=== PATIENT | female | born 1970 | race Caucasian/White ===

== ENCOUNTER 2024-05-15 11:13 | Emergency (ER) | payer SELFPAY ==
--- NOTE | ~2024-05-15 | US_ITS ---
EXAMINATION: US abdomen limited DATE: 05/15/2024 16:43 INDICATION: Right upper quadrant abdominal pain. TECHNIQUE: Multiple grayscale and Doppler ultrasound images of the abdomen were obtained. COMPARISON: CT abdomen and pelvis 05/15/2024 FINDINGS: The visualized portions of the head, body, and tail of the pancreas are normal. The liver i s normal without focal lesion. There is normal flow in main portal vein. The gallbladder is normal in size. No gallstones or gallbladder wall thickening. There is no sonographic Howe's sign. The commo n duct is normal and measures 3 mm. IMPRESSION: 1. Normal right upper quadrant ultrasound. Reviewed, dictated and finalized at location A. IGN POLICY OFFICER
--- NOTE | ~2024-05-15 | CT_ITS ---
CLINICAL INDICATION: Right upper quadrant pain COMPARISON: None. TECHNIQUE: Multiple contiguous axial images of the abdomen and pelvis were performed following the ad ministration of with 100 mL Omnipaque-350 intravenous contrast The dose-length product (DLP) was 214.43 mGy-cm. Automated exposure control and iterative reconstruction technique were employed. FINDINGS/OBSERVATIONS: Visualized lower thorax: The bilateral lung bases are clear. The heart is of normal size, without pericardial effusion. Small hiatal hernia is present. Liver: The liver enhances homogeneously and is not enlarged measuring 15 cm in longitudinal dimension. Gallbladder and biliary system: The gallbladder is decompressed, and otherwise unremarkable. Pancreas: The pancreas enhances homogeneously without ductal dilatation. Spleen: The spleen enhances homogeneously and is not enlarged measuring 9 cm in longitudinal dimension. Kidneys: The bilateral kidneys enhance symmetrically without hydronephrosis or renal calculi. Adrenal glands: Unremarkable. Gastrointestinal tract: Trace colonic diverticulosis without surrounding inflammatory change. Appendix: The air-filled appendix is of normal caliber (axial series, images 109 - 130) Vasculature: Unremarkable. Lymph nodes: No pathologically enlarged or morphologically suspicious lymph nodes within the retroperitoneum or at the root of the mesentery. Pelvic structures: The bladder is decompressed, and otherwise unremarkable. The uterus is anteverted and anteflexed. Body wall and musculoskeletal: No significant degenerative disease within the lower thoracic or lumbosacral spine. IMPRESSION: No acute intra-abdominal pathology, as detailed above. Reviewed, dictated and finalized at location A. ING OPERATOR
[2024-05-15 11:27] VITALS: BP 140/49; PULSE 94; RESP 16; TEMP 36.7
--- NOTE | 2024-05-15 13:54 | ED_ITS ---
HPI - Abdominal Pain General Chief Complaint: Abdominal Pain <Shirlene Mak PA-C - Last Filed: 05/15/24 14:01> Stated Complaint: R abd pain <Shirlene Mak PA-C - Last Filed: 05/15/24 14:01> Time Seen by Provider: 05/15/24 13:54 <Shirlene Mak PA-C - Last Filed: 05/15/24 14:01> Focused HPI: Patient is a 54 y/o female who presents to the ED with c/o R upper abdominal pain. Patient reports she developed nausea, vomiting, diarrhea, subjective fevers, and pain in her R side intermittently over the past 3-4 days. Since this morning, pain is more constant and radiates into her R shoulder. Sta khang the pain is worse with eating or drinking. She has not taken anything for the pain. Never had pain like this before. Denies dysuria, hematuria, cough, cold sx's. GENERAL: Well-appearing, well-nourished, and in no acute distress. HEAD: Normocephalic, atraumatic. CHEST: Clear to auscultation. ?No respiratory distress. HEART: Regular rate and rhythm.? ABD: Focal TTP in RUQ. No rebound. Normoactive BS NEURO: ?Alert and oriented x3. Patient screened in triage and initial orders placed.? ?Additional care and disposition to be based upon?diagnostic testing and treatment. <Shirlene Mak PA-C - Last Filed: 05/15/24 14:01> Source: patient <Shirlene Mak PA-C - Last Filed: 05/15/24 14:01> Mode of arrival: ambulatory <TELLY Romeo Last Filed: 05/15/24 14:01> Limitations: no limitations <Shirlene Mak PA-C - Last Filed: 05/15/24 14:01> History of Present Illness HPI narrative: I agree of the above HPI <Heath Santiago MD - Last Filed: 05/15/24 18:46> Related Data Allergies/Adverse Reactions: Allergies Allergy/AdvReac Type Severity Reaction Status Date / Time Penicillins Allergy Unknown Verified 05/15/24 11:16 <Shirlene Mak PA-C - Last Filed: 05/15/24 14:01> Review of Systems Review of Systems: All systems reviewed & are unremarkable except as noted in HPI and below <Haeth Santiago MD - Last Filed: 05/15/24 18:46> Exam Narrative: APPEARANCE: Well appearing, no pain, no distress, well-nourished. HEAD: normocephalic, atraumatic. EYES: PERRLA/EOMI, conjunctivae clear. NOSE: Normal no drainage EARS:TMS clear with good light reflex. THROAT: Pharynx clear, no exudate. NECK: Supple. No adenopathy, no masses. RESPIRATORY: Airway patent, respirations nonlabored. Clear to auscultation bilaterally, no rales, rhonchi, wheezing. CARDIOVASCULAR: Regular rate and rhythm without murmurs rubs or gallops. ABDOMINAL: Right upper quadrant tenderness MUSCULOSKELETAL: Moves all extremities. Strength/ROM intact, No edema, No calf tenderness. NEURO: Alert. Cranial nerves II through XII intact. Good gait. Good coordination SKIN: Warm, dry. Normal Color <Heath Santiago MD - Last Filed: 05/15/24 18:46> Course BUSINESS EDUCATION PROFESSOR/PA Physician Supervision For this patient encounter, I reviewed the BUSINESS EDUCATION PROFESSOR or PA documentation, treatment plan, and medical decision making; and I had [id number] time with this patient. <Heath Santiago MD - Last Filed: 05/15/24 18:46> Vital Signs Vital signs: Vital Signs Temperature 98.1 F 05/15/24 11:27 Pulse Rate 94 05/15/24 11:27 Respiratory Rate 16 05/15/24 11:27 Blood Pressure 140/49 L 05/15/24 11:27 Oxygen Delivery Room Air 05/15/24 11:27 Temperature 97.8 F 05/15/24 17:12 Pulse Rate 63 05/15/24 17:12 Respiratory Rate 15 05/15/24 17:12 Blood Pressure 110/64 05/15/24 17:12 Pulse Oximetry 98 05/15/24 17:12 Oxygen Delivery Room Air 05/15/24 11:27 <Shirlene Mak PA-C - Last Filed: 05/15/24 14:01> Vital Signs Temperature 98.1 F 05/15/24 11:27 Pulse Rate 94 05/15/24 11:27 Respiratory Rate 16 05/15/24 11:27 Blood Pressure 140/49 L 05/15/24 11:27 Oxygen Delivery Room Air 05/15/24 11:27 Temperature 97.8 F 05/15/24 17:12 Pulse Rate 63 05/15/24 17:12 Respiratory Rate 15 05/15/24 17:12 Blood Pressure 110/64 05/15/24 17:12 Pulse Oximetry 98 05/15/24 17:12 Oxygen Delivery Room Air 05/15/24 11:27 <Heath Santiago MD - Last Filed: 05/15/24 18:46> MDM - Abdominal Pain MDM Narrative Medical decision making narrative: MSE by JONI in triage. <Shirlene Mak PA-C - Last Filed: 05/15/24 14:01> MSE by JONI in triage. 54-year-old female presents emergency department for evaluation for right upper quadrant pain. Patient is afebrile with no leukocytosis and hemoglobin of 13.4. Patient has no acute abnormalities on her CMP. Patient does have a mild urinary tract infection. CT scan showed no acute abnormalities. Patient is still complaining of right upper quadrant pain, ultrasound was ordered to evaluate for gallbladder abnormality and gallbladder was normal ultrasound. Patient was started on antibiotics for suspected urinary tract infection. Patient was encouraged of close follow-up with her primary care physician. All questions concerns were addressed patient was well-appearing at time of dis charge. <Heath Santiago MD - Last Filed: 05/15/24 18:46> Differential Diagnosis Differential diagnosis: Likely abdominal pain, acute appendicitis, calculus of kidney, constipation, diverticulitis, gastroenteritis, pancreatitis and small bowel obstruction <Heath Santiago MD - Last Filed: 05/15/24 18:46> Lab Data Attestation: I reviewed the patient's lab results. <Heath Santiago MD - Last Filed: 05/15/24 18:46> Result diagrams: 05/15/24 14:00 05/15/24 14:00 <Shirlene Mak PA-C - Last Filed: 05/15/24 14:01> Labs: Lab Results 05/15/24 05/15/24 Range/Units 14:00 14:59 WBC 6.3 (4.5-10.0) K/mm3 RBC 4.19 L (4.2-5.4) M/mm3 Hgb 13.4 (12.0-15.0) g/dL Hct 38.9 (37.0-47.0) % MCV 92.8 (80-100) fl MCH 32.0 (26-34) pg MCHC 34.4 (32-36) g/dl RDW 12.8 (11.5-14.5) % Plt Count 198 (150-375) k/mm3 MPV 12.0 H (7.4-10.4) fl Immature Gran % (Auto) 0.2 (0-0.5) % Neut % (Auto) 56.4 (45.5-73.1) % Lymph % (Auto) 35.3 (18.3-44.2) % [place] % (Auto) 6.5 (2.6-8.5) % Eos % (Auto) 1.1 (0-4.4) % Baso % (Auto) 0.5 (0.2-1.2) % Lymph # (Auto) 2.23 (0.9-3.2) K/mm3 [place] # (Auto) 0.4 (0.1-0.6) K/mm3 Eos # (Auto) 0.1 (0-0.3) K/mm3 Baso # (Auto) 0.0 (0.0-0.1) K/mm3 Abs Immat Gran (auto) 0.01 (0.00-0.031) K/mm3 Absolute Neuts (auto) 3.6 (1.3-6.7) K/mm3 Absolute Nucleated RBC 0.000 (0.0-0.012) K/mm3 Nucleated RBC % 0.0 (0.0-0.2) % Sodium 139 (137-145) mmol/L Potassium 4.0 (3.4-5.0) mmol/L Chloride 106 (98-107) mmol/L Carbon Dioxide 25 (22-30) mmol/L Anion Gap 8 (4-12) mmol/L BUN 12 (7-17) mg/dL Creatinine 0.70 (0.7-1.0) mg/dL Estim Creat Clear Calc 66 ml/min Estimated GFR > 60 (59 - ) Glucose 98 (65-110) mg/dL Calcium 9.7 (8.4-10.2) mg/dL Total Bilirubin 0.3 (0.2-1.3) mg/dL AST 22 (14-36) U/L ALT 11 (6-35) U/L Alkaline Phosphatase 58 (38-126) U/L Total Protein 8.0 (6.3-8.2) g/dL Albumin 4.7 (3.5-5.1) g/dL Lipase 69 (23-300) U/L Urine Color Yellow (Yellow) Urine Appearance Cloudy H (Clear) Urine pH 6.5 (5.0-9.0) Ur Specific [place] 1.018 (1.001-1.035) Urine Protein Negative (Negative) mg/dL Urine Glucose (UA) Negative (Negative) mg/dL Urine Ketones Trace H (Negative) mg/dL Ur Blood (Man) Negative (Negative) Urine Nitrate Negative (Negative) Urine Bilirubin Negative (Negative) Urine Urobilinogen 1.0 (<2.0) mg/dL Leukocyte Esterase Rfl 1+ H (Negative) MIRLANDE/UL Urine RBC 0-2 (0-2) /hpf Urine WBC 11-20 H (0-3) /hpf Ur Squamous Epith Cells Moderate (Few) /hpf Urine Bacteria Rare /hpf Urine Casts 0-2 <Shirlene Mak PA-C - Last Filed: 05/15/24 14:01> Lab Results 05/15/24 05/15/24 Range/Units 14:00 14:59 WBC 6.3 (4.5-10.0) K/mm3 RBC 4.19 L (4.2-5.4) M/mm3 Hgb 13.4 (12.0-15.0) g/dL Hct 38.9 (37.0-47.0) % MCV 92.8 (80-100) fl MCH 32.0 (26-34) pg MCHC 34.4 (32-36) g/dl RDW 12.8 (11.5-14.5) % Plt Count 198 (150-375) k/mm3 MPV 12.0 H (7.4-10.4) fl Immature Gran % (Auto) 0.2 (0-0.5) % Neut % (Auto) 56.4 (45.5-73.1) % Lymph % (Auto) 35.3 (18.3-44.2) % [place] % (Auto) 6.5 (2.6-8.5) % Eos % (Auto) 1.1 (0-4.4) % Baso % (Auto) 0.5 (0.2-1.2) % Lymph # (Auto) 2.23 (0.9-3.2) K/mm3 [place] # (Auto) 0.4 (0.1-0.6) K/mm3 Eos # (Auto) 0.1 (0-0.3) K/mm3 Baso # (Auto) 0.0 (0.0-0.1) K/mm3 Abs Immat Gran (auto) 0.01 (0.00-0.031) K/mm3 Absolute Neuts (auto) 3.6 (1.3-6.7) K/mm3 Absolute Nucleated RBC 0.000 (0.0-0.012) K/mm3 Nucleated RBC % 0.0 (0.0-0.2) % Sodium 139 (137-145) mmol/L Potassium 4.0 (3.4-5.0) mmol/L Chloride 106 (98-107) mmol/L Carbon Dioxide 25 (22-30) mmol/L Anion Gap 8 (4-12) mmol/L BUN 12 (7-17) mg/dL Creatinine 0.70 (0.7-1.0) mg/dL Estim Creat Clear Calc 66 ml/min Estimated GFR > 60 (59 - ) Glucose 98 (65-110) mg/dL Calcium 9.7 (8.4-10.2) mg/dL Total Bilirubin 0.3 (0.2-1.3) mg/dL AST 22 (14-36) U/L ALT 11 (6-35) U/L Alkaline Phosphatase 58 (38-126) U/L Total Protein 8.0 (6.3-8.2) g/dL Albumin 4.7 (3.5-5.1) g/dL Lipase 69 (23-300) U/L Urine Color Yellow (Yellow) Urine Appearance Cloudy H (Clear) Urine pH 6.5 (5.0-9.0) Ur Specific [place] 1.018 (1.001-1.035) Urine Protein Negative (Negative) mg/dL Urine Glucose (UA) Negative (Negative) mg/dL Urine Ketones Trace H (Negative) mg/dL Ur Blood (Man) Negative (Negative) Urine Nitrate Negative (Negative) Urine Bilirubin Negative (Negative) Urine Urobilinogen 1.0 (<2.0) mg/dL Leukocyte Esterase Rfl 1+ H (Negative) [place]/UL Urine RBC 0-2 (0-2) /hpf Urine WBC 11-20 H (0-3) /hpf Ur Squamous Epith Cells Moderate (Few) /hpf Urine Bacteria Rare /hpf Urine Casts 0-2 <Heath Santiago MD - Last Filed: 05/15/24 18:46> Imaging Data Radiologist's impression: ITS Impressions Abdomen/Pelvis CT 05/15/24 15:12 IMPRESSION: No acute intra-abdominal pathology, as detailed above. Abdomen Ultrasound 05/15/24 16:44 IMPRESSION: 1. Normal right upper quadrant ultrasound. <Shirlene Mak PA-C - Last Filed: 05/15/24 14:01> ITS Impressions Abdomen/Pelvis CT 05/15/24 15:12 IMPRESSION: No acute intra-abdominal pathology, as detailed above. Abdomen Ultrasound 05/15/24 16:44 IMPRESSION: 1. Normal right upper quadrant ultrasound. <Heath Santiago MD - Last Filed: 05/15/24 18:46> Discharge Plan Discharge Clinical Impression: Abdominal pain, RUQ, UTI (urinary tract infection) <Shirlene Mak PA-C - Last Filed: 05/15/24 14:01> Patient Disposition: Home, Self-Care <Shirlene Mak PA-C - Last Filed: 05/15/24 14:01> Condition: Stable <Shirlene Mak PA-C - Last Filed: 05/15/24 14:01> Instructions: Antibiotic Form, Urinary Tract Infection in Women (DC), Abdominal Pain (ED) <Shirlene Mak PA-C - Last Filed: 05/15/24 14:01> Additional Instructions: Antibiotic directed for the urinary tract infection. Have close follow-up with your primary care physician. If you have any worsening symptoms then please call or return to the emergency department. <Shirlene Mak PA-C - Last Filed: 05/15/24 14:01> Prescriptions: New nitrofurantoin monohyd/m-cryst [Macrobid] 100 mg capsule 100 mg PO Q12H 5 Days Qty: 10 0RF Rx Instructions: must administer with a meal/food <Shirlene Mak PA-C - Last Filed: 05/15/24 14:01> Follow-up/Referrals: UNKNOWN,DOCTOR [Primary Care Provider] - <Shirlene Mak PA-C - Last Filed: 05/15/24 14:01> Stand Alone Forms: Work/School Release IP <Shirlene Mak PA-C - Last Filed: 05/15/24 14:01>
[2024-05-15] MEDS: HYDROcodone/acetaminophen (*CRX) 5-325 MG TABLET 1 TAB PO (14:02)
[2024-05-15 14:13] LABS: Basophils Percent Auto 0.5 % (0.2-1.2); Eosinophils Absolute Auto 0.1 K/mm3 (0-0.3); Eosinophils Percent Auto 1.1 % (0-4.4); Hematocrit 38.9 % (37.0-47.0); Hemoglobin 13.4 g/dL (12.0-15.0); Immature Granulocyte Absolute 0.01 K/mm3 (0.00-0.031); Immature Granulocyte Percent A 0.2 % (0-0.5); Lymphocytes Absolute Auto 2.23 K/mm3 (0.9-3.2); Lymphocytes Percent Auto 35.3 % (18.3-44.2); Mean Corpuscular HGB Conc 34.4 g/dl (32-36); Mean Corpuscular Volume 92.8 fl (80-100); Monocytes Absolute Auto 0.4 K/mm3 (0.1-0.6); Monocytes Percent Auto 6.5 % (2.6-8.5); Neutrophils Absolute Auto 3.6 K/mm3 (1.3-6.7); Neutrophils Percent Auto 56.4 % (45.5-73.1); Platelet Count Result 198 k/mm3 (150-375); Red Blood Count 4.19 M/mm3 (4.2-5.4); Red Cell Distribution Width 12.8 % (11.5-14.5); White Blood Count 6.3 K/mm3 (4.5-10.0)
[2024-05-15 14:46] LABS: Alanine Aminotransferase 11 U/L (6-35); Albumin Level 4.7 g/dL (3.5-5.1); Alkaline Phosphatase 58 U/L (38-126); Anion Gap 8 mmol/L (4-12); Aspartate Amino Transferase 22 U/L (14-36); Bilirubin,Total 0.3 mg/dL (0.2-1.3); Blood Urea Nitrogen 12 mg/dL (7-17); Calcium 9.7 mg/dL (8.4-10.2); Carbon Dioxide 25 mmol/L (22-30); Chloride 106 mmol/L (98-107); Estimated CRCL calculation 66 ml/min; Estimated Glomerular Filt Rate > 60; Glucose 98 mg/dL (65-110); Lipase 69 U/L (23-300); Sodium 139 mmol/L (137-145)
[2024-05-15 15:01] VITALS: BP 109/58; PULSE 81; RESP 18; O2SAT 99
[2024-05-15 15:15] LABS: Add Urine Microscopic? YES; Appearance Urine Cloudy (Clear); Bacteria Urine Rare /hpf; Bilirubin Urine Negative (Negative); Blood Urine Negative (Negative); Color Urine Yellow (Yellow); Glucose Urine UA Negative (Negative); Ketones Urine Trace mg/dL (Negative); Leukocyte Esterase Ur 1+ LEU/UL (Negative); Nitrate Urine Negative (Negative); Non Pathogenic Casts 0-2; Protein Urine Negative (Negative); RBC Urine 0-2 /hpf (0-2); Specific Grav Ur 1.018 (1.001-1.035); Squamous Epithelial Cell Urine Moderate /hpf (Few); pH Urine 6.5 (5.0-9.0)
[2024-05-15] MEDS: NITROFURANTOIN MONOHYD MACROCR 100 MG CAP PO (17:02)
[2024-05-15 17:12] VITALS: BP 110/64; PULSE 63; RESP 15; TEMP 36.6; O2SAT 98
== END 2024-05-15 17:15 | disposition home or self-care (01) ==
PROVIDERS: Physician Assistant; Emergency Provider Emergency Medicine
DX: N39.0 Urinary tract infection, site not specified (principal); R10.11 Right upper quadrant pain
CPT/HCPCS: 36415; 74177; 76705; 80053; 81001; 83690; 85025; 87086; 99284; A9270; Q9967

== ENCOUNTER 2024-06-08 09:10 | Emergency (ER) | payer SELFPAY ==
[2024-06-08 09:11] VITALS: BP 125/60; PULSE 88; RESP 18; TEMP 36.9; O2SAT 100
--- NOTE | 2024-06-08 09:13 | ED_ITS ---
HPI - Abdominal Pain General Chief Complaint: Abdominal Pain Stated Complaint: right sided abdominal pain Time Seen by Provider: 06/08/24 09:12 this is a 54-year-old female who presents with epigastric tenderness with mild nausea no vomiting no diarrhea or constipation no dysuria or hematuria no fever chills no flank pain. The patient was seen proximally week ago at [facility] and had CT scan and ultrasound of the gallbladder which were all negative and patient was treated for urinary tract infection. History of Present Illness MD elicited complaint: abdominal pain ( epigastric tender) Related Data Allergies Allergy/AdvReac Type Severity Reaction Status Date / Time Penicillins Allergy Unknown Verified 05/15/24 11:16 Review of Systems Review of Systems: All systems reviewed & are unremarkable except as noted in HPI and below Exam Const: General: healthy appearing Nutritional Appearance: well nourished Orientation/consciousness: patient oriented x3 HENMT: Head: normal to inspection Eyes: Conjunctivae: conjunctivae normal Neck: Neck: normal visual inspection Chest: Chest palpation & inspection: normal inspection of the chest Resp: Effort & Inspection: normal respiratory effort Auscultation: clear to auscultation bilaterally Cardio: Rate: regular rate Rhythm: regular rhythm GI: GI Palp: Yes Soft to palpation and Yes Tenderness to palpation present (GI) : General: Yes bladder normal to palpation Urinary Catheter: Urinary Catheter: patent and draining Back/Spine/Pelvis: Back: no CVA tenderness Skin: General skin exam: normal color Rashes: no rashes Neuro: General: patient oriented x3 and moves all extremities Course Course Emergency Course: Patient received p.o. Protonix, and urinalysis performed shows no urinary tract infection. Vital Signs Vital signs: Vital Signs Temperature 36.9 C 06/08/24 09:11 Pulse Rate 88 06/08/24 09:11 Respiratory Rate 18 06/08/24 09:11 Blood Pressure 125/60 06/08/24 09:11 Pulse Oximetry 100 06/08/24 09:11 Oxygen Delivery Room Air 06/08/24 09:11 Temperature 36.9 C 06/08/24 09:11 Pulse Rate 88 06/08/24 09:11 Respiratory Rate 18 06/08/24 09:11 Blood Pressure 125/60 06/08/24 09:11 Pulse Oximetry 100 06/08/24 09:11 Oxygen Delivery Room Air 06/08/24 09:11 Critical Care Time Critical Care Time Critical Care Time: No Discharge Plan Discharge Clinical Impression: Reflux gastritis Patient Disposition: Home, Self-Care Condition: Stable Instructions: Antibiotic Form, GERD (Gastroesophageal Reflux Disease) (ED) Additional Instructions: advised medication as prescribed and follow with primary within 1 week for further evaluation and treatment. Patient Language: Belarusian Prescriptions: New pantoprazole [Protonix] 40 mg tablet,delayed release (DR/EC) 40 mg PO QAM 28 Days Qty: 28 0RF Follow-up/Referrals: UNKNOWN,DOCTOR [Primary Care Provider] - Time of Disposition: 09:52
[2024-06-08] MEDS: PANTOPRAZOLE 40 MG TABLET PO (09:34)
[2024-06-08 09:41] LABS: Add Urine Microscopic? NO; Appearance Urine Clear (Clear); Bilirubin Urine Negative (Negative); Blood Urine Negative (Negative); Color Urine Light Yellow (Yellow); Glucose Urine UA Negative (Negative); Ketones Urine Negative (Negative); Leukocyte Esterase Ur Negative LEU/UL (Negative); Nitrate Urine Negative (Negative); Protein Urine Negative (Negative); Urobilinogen Urine 0.2 mg/dL (0.2-1.0)
[2024-06-08 10:02] VITALS: BP 125/62; PULSE 75; RESP 17; TEMP 36.9; O2SAT 100
== END 2024-06-08 10:02 | disposition home or self-care (01) ==
PROVIDERS: Emergency Provider Emergency Medicine
DX: K29.60 Other gastritis without bleeding (principal)
CPT/HCPCS: 81003; 99283; A9270

== ENCOUNTER 2024-06-30 10:44 | Emergency (ER) | payer SELFPAY ==
[2024-06-30] VITALS (7 sets, daily range): BP systolic 110–146; BP diastolic 40–59; PULSE 61–95; RESP 12–111; TEMP 36.3; O2SAT 100
--- NOTE | ~2024-06-30 | CT_ITS ---
CLINICAL INDICATION: Right upper quadrant pain COMPARISON: 05/15/2024. TECHNIQUE: Multiple contiguous axial images of the abdomen and pelvis were performed following the ad ministration of with 100 mL Omnipaque-350 intravenous contrast The dose-length product (DLP) was 205.02 mGy-cm. Automated exposure control and iterative reconstruction technique were employed. FINDINGS/OBSERVATIONS: Visualized lower thorax: The bilateral lung bases are clear. The heart is of normal size, without pericardial effusion. Small hiatal hernia is present. Liver: 5 mm well-circumscribed focus of decreased attenuation within segment 6 of the liver, too small to ch aracterize but statistically a cyst. The remainder of the liver otherwise enhances homogeneously and is not enlarged measuring 14 cm in lo ngitudinal dimension. Gallbladder and biliary system: The gallbladder is only minimally distended, and otherwise unremarkable. Pancreas: The pancreas enhances homogeneously without ductal dilatation. Spleen: The spleen enhances homogeneously and is not enlarged measuring 8 cm in longitudinal dimension. Kidneys: The bilateral kidneys enhance symmetrically without hydronephrosis or renal calculi. Adrenal glands: Unremarkable. Gastrointestinal tract: Moderate fecal stasis within the colon Appendix: The contrast and air-filled appendix is of normal caliber (axial series, images 99 through 119) Vasculature: Unremarkable. No aneurysmal dilatation or significant stenosis. Lymph nodes: No pathologically enlarged or morphologically suspicious lymph nodes within the retroperitoneum or at the root of the mesentery. Scattered subcentimeter lymph nodes, a nonspecific finding. Pelvic structures: The bladder is only minimally distended, and otherwise unremarkable. The uterus is anteverted and anteflexed and otherwise unremarkable. 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 IMPRESSION: Moderate fecal stasis within the colon. No acute intra-abdominal pathology to explain patient's right upper quadrant pain. Would recommend a HIDA scan, nonemergently, to evaluate for biliary dyskinesia (a common cause of rig ht upper quadrant pain), if the patient is clinically able. Reviewed, dictated and finalized at location A. [facility] IMPRESSION: Moderate fecal stasis within the colon. No acute intra-abdominal pathology to explain patient's right upper quadrant pa in. Would recommend a HIDA scan, nonemergently, to evaluate for biliary dyskinesia (a common cause of right upper quadrant pain), if the patient is clinically abl e.
--- NOTE | 2024-06-30 14:15 | ECG_ITS ---
Test Date: 2024-06-30 18:08:41 Measurements Intervals [place] Rate: 58 P: 66 [place]: 149 QRS: 22 QRSD: 102 T: 43 QT: 400 QTc: 395 Interpretive Statements SINUS BRADYCARDIA WITH SINUS ARRHYTHMIA INCOMPLETE RIGHT BUNDLE BRANCH BLOCK [90+ ms QRS DURATION, TERMINAL R IN V1/V2, 40+ ms S IN I/aVL/V4/V5/V6] MODERATE T-WAVE ABNORMALITY, CONSIDER ANTERIOR ISCHEMIA [-0.1+ mV T WAVE IN V3/V4] No previous ECG available for comparison Electronically Signed On 07-04-2024 17:47:47 SPORTS PHYSICAL THERAPIST by Clark Boyd M.D.
--- NOTE | 2024-06-30 14:19 | ED_ITS ---
HPI - Abdominal Pain General Chief Complaint: Abdominal Pain <TELLY Carrasco Last Filed: 06/30/24 14:23> Stated Complaint: abd pain, vomiting, weakness <Diana Galvan PA-C - Last Filed: 06/30/24 14:23> Time Seen by Provider: 06/30/24 17:59 <Diana Galvan PA-C - Last Filed: 06/30/24 14:23> Focused HPI: 54 y/o F presents to the ED for right upper quadrant abdominal pain for over a month. Patient states the pain is located in right upper quadrant and radiates across her abdomen and down into her pelvis and was radiating to the right flank. She does states that has been going on for greater than a month. She is now having significant heartburn any time she eats or drinks anything. She has been taking pantoprazole 40 mg without improvement. She was seen in our ED approximately 1 month ago for similar symptoms and had a negative workup at that time including lab work, CT scan and right upper quadrant ultrasound. She states symptoms have progressively worsened. She has not followed up outpatient. She also is now stating that she has had some dark and sticky stools. Denies coffee-ground emesis or hematemesis. No known history of gastric or duodenal ulcers. GENERAL: Well-appearing, well-nourished, and in no acute distress. HEAD: Normocephalic, atraumatic. CHEST: Clear to auscultation. ?No respiratory distress. HEART: Regular rate and rhythm.? NEURO: ?Alert and oriented x3. Patient screened in triage and initial orders placed.? ?Additional care and disposition to be based upon?diagnostic testing and treatment. <TELLY Carrasco Last Filed: 06/30/24 14:23> Related Data Allergies/Adverse Reactions: Allergies Allergy/AdvReac Type Severity Reaction Status Date / Time Penicillins Allergy Unknown Verified 05/15/24 11:16 <Diana Galvan PA-C - Last Filed: 06/30/24 14:23> Review of Systems 2 Review of Systems: CONSTITUTIONAL: Denies fever GASTROINTESTINAL: Reports abdominal pain. Denies nausea, vomiting, or diarrhea. GENITOURINARY: Denies dysuria or hematuria. <Aisha Reed PA-C - Last Filed: 06/30/24 21:28> All systems reviewed & are unremarkable except as noted in HPI and below < Aisha Reed PA-C - Last Filed: 06/30/24 21:28> PMFSH Past Medical History Medical History: Medical History (Updated 06/30/24 @ 21:26 by Aisha Reed PA-C) History of gastroesophageal reflux (GERD) <Diana Galvan PA-C - Last Filed: 06/30/24 14:23> Social History Social History: Social History (Updated 06/30/24 @ 21:26 by Aisha Reed PA-C) Substance use: never <Diana Galvan PA-C - Last Filed: 06/30/24 14:23> Exam 2 Narrative: GENERAL: Well-appearing, well-nourished, and in no acute distress. HEAD: Normocephalic, atraumatic. EYES: EOMI. CHEST: Clear to auscultation. No respiratory distress. No wheezes rales or rhonchi HEART: Regular rate and rhythm. No murmur heard. Normal peripheral pulses. ABDOMEN: Soft, nontender, nondistended, normal active bowel sounds. EXTREMITIES: Normal range of motion. No edema. SKIN: Warm, dry, no rash. NEURO: No focal deficits. Alert and oriented x3. PSYCH: Normal mood and affect <Aisha Reed PA-C - Last Filed: 06/30/24 21:28> Course Course Emergency Course: Patient was updated on her workup and agrees with plan of care. Resting comfortably <Aisha Reed PA-C - Last Filed: 06/30/24 21:28> Vital Signs Vital signs: Vital Signs Temperature 97.4 F L 06/30/24 11:04 Pulse Rate 95 06/30/24 11:04 Respiratory Rate 16 06/30/24 11:04 Blood Pressure 146/59 H 06/30/24 11:04 Pulse Oximetry 100 06/30/24 11:04 Oxygen Delivery Room Air 06/30/24 11:04 Temperature 97.4 F L 06/30/24 11:04 Pulse Rate 69 06/30/24 18:47 Respiratory Rate 111 H 06/30/24 18:47 Blood Pressure 115/40 L 06/30/24 18:47 Pulse Oximetry 100 06/30/24 18:47 Oxygen Delivery Room Air 06/30/24 11:04 <Diana Galvan PA-C - Last Filed: 06/30/24 14:23> Vital Signs Temperature 97.4 F L 06/30/24 11:04 Pulse Rate 95 06/30/24 11:04 Respiratory Rate 16 06/30/24 11:04 Blood Pressure 146/59 H 06/30/24 11:04 Pulse Oximetry 100 06/30/24 11:04 Oxygen Delivery Room Air 06/30/24 11:04 Temperature 97.4 F L 06/30/24 11:04 Pulse Rate 69 06/30/24 18:47 Respiratory Rate 111 H 06/30/24 18:47 Blood Pressure 115/40 L 06/30/24 18:47 Pulse Oximetry 100 06/30/24 18:47 Oxygen Delivery Room Air 06/30/24 11:04 <Aisha Reed PA-C - Last Filed: 06/30/24 21:28> MDM - Abdominal Pain MDM Narrative Medical decision making narrative: patient presents emergency department for right upper quadrant abdominal pain. Also reporting reflux symptoms. She is afebrile and nontoxic appearing. Her vitals are stable. Cbc without leukocytosis. Metabolic panel and lipase without concerning findings. Urine with 11-20 white blood cells, but many squamous epithelial cells. Patient is not having any urinary symptoms. This will be sent for culture. CT abdomen pelvis shows moderate fecal stasis, otherwise no acute findings. Recommend nonemergent outpatient HIDA scan. Patient was updated on her workup and agrees with plan of care. Resting comfortably. she is to follow-up with gastroenterology. She was given warnings to return to the ER <Aisha Reed PA-C - Last Filed: 06/30/24 21:28> Differential Diagnosis Differential diagnosis: Likely other (GERD, esophagitis, peptic ulcer disease, biliary colic) < TELLY Mejia Last Filed: 06/30/24 21:28> Lab Data Attestation: I reviewed the patient's lab results. <Aisha Reed PA-C - Last Filed: 06/30/24 21:28> Result diagrams: 06/30/24 17:58 06/30/24 17:58 <Diana Galvan PA-C - Last Filed: 06/30/24 14:23> Labs: Lab Results 06/30/24 Range/Units 17:58 WBC 7.0 (4.5-10.0) K/mm3 RBC 4.23 (4.2-5.4) M/mm3 Hgb 13.4 (12.0-15.0) g/dL Hct 39.8 (37.0-47.0) % MCV 94.1 (80-100) fl MCH 31.7 (26-34) pg MCHC 33.7 (32-36) g/dl RDW 12.5 (11.5-14.5) % Plt Count 205 (150-375) k/mm3 MPV 11.4 H (7.4-10.4) fl Immature Gran % (Auto) 0.3 (0-0.5) % Neut % (Auto) 51.1 (45.5-73.1) % Lymph % (Auto) 39.9 (18.3-44.2) % [place] % (Auto) 6.4 (2.6-8.5) % Eos % (Auto) 1.9 (0-4.4) % Baso % (Auto) 0.4 (0.2-1.2) % Lymph # (Auto) 2.80 (0.9-3.2) K/mm3 [place] # (Auto) 0.5 (0.1-0.6) K/mm3 Eos # (Auto) 0.1 (0-0.3) K/mm3 Baso # (Auto) 0.0 (0.0-0.1) K/mm3 Abs Immat Gran (auto) 0.02 (0.00-0.031) K/mm3 Absolute Neuts (auto) 3.6 (1.3-6.7) K/mm3 Absolute Nucleated RBC 0.000 (0.0-0.012) K/mm3 Nucleated RBC % 0.0 (0.0-0.2) % PT 13.2 (11.1-14.7) Seconds INR 1.0 APTT 25.6 (22.3-36.8) Seconds Sodium 137 (137-145) mmol/L Potassium 3.7 (3.4-5.0) mmol/L Chloride 103 (98-107) mmol/L Carbon Dioxide 28 (22-30) mmol/L Anion Gap 6 (4-12) mmol/L BUN 13 (7-17) mg/dL Creatinine 0.80 (0.7-1.0) mg/dL Estim Creat Clear Calc 56 ml/min Estimated GFR > 60 (59 - ) Glucose 133 H (65-110) mg/dL Calcium 9.7 (8.4-10.2) mg/dL Total Bilirubin 0.6 (0.2-1.3) mg/dL AST 25 (14-36) U/L ALT 15 (6-35) U/L Alkaline Phosphatase 57 (38-126) U/L Troponin I < 0.012 (0.000-0.034) ng/mL Total Protein 8.0 (6.3-8.2) g/dL Albumin 5.0 (3.5-5.1) g/dL Lipase 53 (23-300) U/L Urine Color Yellow (Yellow) Urine Appearance Cloudy H (Clear) Urine pH 5.5 (5.0-9.0) Ur Specific [place] 1.016 (1.001-1.035) Urine Protein Negative (Negative) mg/dL Urine Glucose (UA) Negative (Negative) mg/dL Urine Ketones 1+ H (Negative) mg/dL Ur Blood (Man) 1+ H (Negative) Urine Nitrate Negative (Negative) Urine Bilirubin Negative (Negative) Urine Urobilinogen 1.0 (<2.0) mg/dL Leukocyte Esterase Rfl 1+ H (Negative) MIRLANDE/UL Urine RBC 0-2 (0-2) /hpf Urine WBC 11-20 H (0-3) /hpf Ur Squamous Epith Cells Many H (Few) /hpf Urine Bacteria Rare /hpf Urine Casts 0-2 <Diana Galvan PA-C - Last Filed: 06/30/24 14:23> Lab Results 06/30/24 Range/Units 17:58 WBC 7.0 (4.5-10.0) K/mm3 RBC 4.23 (4.2-5.4) M/mm3 Hgb 13.4 (12.0-15.0) g/dL Hct 39.8 (37.0-47.0) % MCV 94.1 (80-100) fl MCH 31.7 (26-34) pg MCHC 33.7 (32-36) g/dl RDW 12.5 (11.5-14.5) % Plt Count 205 (150-375) k/mm3 MPV 11.4 H (7.4-10.4) fl Immature Gran % (Auto) 0.3 (0-0.5) % Neut % (Auto) 51.1 (45.5-73.1) % Lymph % (Auto) 39.9 (18.3-44.2) % [place] % (Auto) 6.4 (2.6-8.5) % Eos % (Auto) 1.9 (0-4.4) % Baso % (Auto) 0.4 (0.2-1.2) % Lymph # (Auto) 2.80 (0.9-3.2) K/mm3 [place] # (Auto) 0.5 (0.1-0.6) K/mm3 Eos # (Auto) 0.1 (0-0.3) K/mm3 Baso # (Auto) 0.0 (0.0-0.1) K/mm3 Abs Immat Gran (auto) 0.02 (0.00-0.031) K/mm3 Absolute Neuts (auto) 3.6 (1.3-6.7) K/mm3 Absolute Nucleated RBC 0.000 (0.0-0.012) K/mm3 Nucleated RBC % 0.0 (0.0-0.2) % PT 13.2 (11.1-14.7) Seconds INR 1.0 APTT 25.6 (22.3-36.8) Seconds Sodium 137 (137-145) mmol/L Potassium 3.7 (3.4-5.0) mmol/L Chloride 103 (98-107) mmol/L Carbon Dioxide 28 (22-30) mmol/L Anion Gap 6 (4-12) mmol/L BUN 13 (7-17) mg/dL Creatinine 0.80 (0.7-1.0) mg/dL Estim Creat Clear Calc 56 ml/min Estimated GFR > 60 (59 - ) Glucose 133 H (65-110) mg/dL Calcium 9.7 (8.4-10.2) mg/dL Total Bilirubin 0.6 (0.2-1.3) mg/dL AST 25 (14-36) U/L ALT 15 (6-35) U/L Alkaline Phosphatase 57 (38-126) U/L Troponin I < 0.012 (0.000-0.034) ng/mL Total Protein 8.0 (6.3-8.2) g/dL Albumin 5.0 (3.5-5.1) g/dL Lipase 53 (23-300) U/L Urine Color Yellow (Yellow) Urine Appearance Cloudy H (Clear) Urine pH 5.5 (5.0-9.0) Ur Specific [place] 1.016 (1.001-1.035) Urine Protein Negative (Negative) mg/dL Urine Glucose (UA) Negative (Negative) mg/dL Urine Ketones 1+ H (Negative) mg/dL Ur Blood (Man) 1+ H (Negative) Urine Nitrate Negative (Negative) Urine Bilirubin Negative (Negative) Urine Urobilinogen 1.0 (<2.0) mg/dL Leukocyte Esterase Rfl 1+ H (Negative) [place]/UL Urine RBC 0-2 (0-2) /hpf Urine WBC 11-20 H (0-3) /hpf Ur Squamous Epith Cells Many H (Few) /hpf Urine Bacteria Rare /hpf Urine Casts 0-2 <Aisha Reed PA-C - Last Filed: 06/30/24 21:28> Imaging Data Radiologist's impression: ITS Impressions Abdomen/Pelvis CT 06/30/24 18:45 IMPRESSION: Moderate fecal stasis within the colon. No acute intra-abdominal pathology to explain patient's right upper quadrant pain. Would recommend a HIDA scan, nonemergently, to evaluate for biliary dyskinesia (a common cause of right upper quadrant pain), if the patient is clinically able. <Diana Galvan PA-C - Last Filed: 06/30/24 14:23> ITS Impressions Abdomen/Pelvis CT 06/30/24 18:45 IMPRESSION: Moderate fecal stasis within the colon. No acute intra-abdominal pathology to explain patient's right upper quadrant pain. Would recommend a HIDA scan, nonemergently, to evaluate for biliary dyskinesia (a common cause of right upper quadrant pain), if the patient is clinically able. <Aisha Reed PA-C - Last Filed: 06/30/24 21:28> Critical Care Time Critical Care Time Critical Care Time: No <TELLY Mejia Last Filed: 06/30/24 21:28> Discharge Plan Discharge Clinical Impression: Right upper quadrant abdominal pain GERD (gastroesophageal reflux disease) Qualifiers: Esophagitis presence: esophagitis presence not specified Qualified Code(s): K 21.9 - Gastro-esophageal reflux disease without esophagitis <TELLY Carrasco Last Filed: 06/30/24 14:23> Patient Disposition: Home, Self-Care <TELLY Carrasco Last Filed: 06/30/24 14:23> Condition: Improved <TELLY Carrasco Last Filed: 06/30/24 14:23> Instructions: Low Fat Diet (ED), GERD (Gastroesophageal Reflux Disease) (ED), Abdominal Pain (ED) <TELLY Carrasco Last Filed: 06/30/24 14:23> Additional Instructions: Return to the ER if you experience fever, abdominal pain with nausea and vomiting, you are unable to keep down liquids or solids, pain or burning with urination, blood in the urine or any other symptoms that are concerning to you Small, frequent meals. [place] diet. Remain well hydrated. avoid spicy/ acidic foods. Avoid eating just before bedtime. Avoid anti-inflammatories. Increase pantoprazole to twice daily. Pain medication as needed Follow up with gastroenterology for further evaluation <TELLY Carrasco Last Filed: 06/30/24 14:23> Patient Language: Indian <TELLY Carrasco Last Filed: 06/30/24 14:23> Prescriptions: New pantoprazole [Protonix] 40 mg tablet,delayed release (DR/EC) 40 mg PO BID 28 Days Qty: 56 0RF hydrocodone-acetaminophen 5-325 mg tablet 1 tablet PO Q6H PRN (Reason: pain) Qty: 10 0RF No Action pantoprazole [Protonix] 40 mg tablet,delayed release (DR/EC) 40 mg PO QAM 28 Days Qty: 28 0RF pantoprazole [Protonix] 40 mg tablet,delayed release (DR/EC) 40 mg PO QAM 28 Days Qty: 28 0RF <Diana Galvan PA-C - Last Filed: 06/30/24 14:23> Follow-up/Referrals: Latrell Wall MD [Physician] - UNKNOWN,DOCTOR [Primary Care Provider] - <Diana Galvan PA-C - Last Filed: 06/30/24 14:23>
[2024-06-30 18:06] LABS: Basophils Percent Auto 0.4 % (0.2-1.2); Eosinophils Absolute Auto 0.1 K/mm3 (0-0.3); Eosinophils Percent Auto 1.9 % (0-4.4); Hematocrit 39.8 % (37.0-47.0); Hemoglobin 13.4 g/dL (12.0-15.0); Immature Granulocyte Absolute 0.02 K/mm3 (0.00-0.031); Immature Granulocyte Percent A 0.3 % (0-0.5); Lymphocytes Percent Auto 39.9 % (18.3-44.2); Mean Corpuscular HGB Conc 33.7 g/dl (32-36); Mean Corpuscular Hemoglobin 31.7 pg (26-34); Mean Corpuscular Volume 94.1 fl (80-100); Mean Platelet Volume 11.4 fl (7.4-10.4); Monocytes Absolute Auto 0.5 K/mm3 (0.1-0.6); Monocytes Percent Auto 6.4 % (2.6-8.5); Neutrophils Absolute Auto 3.6 K/mm3 (1.3-6.7); Neutrophils Percent Auto 51.1 % (45.5-73.1); Platelet Count Result 205 k/mm3 (150-375); Red Blood Count 4.23 M/mm3 (4.2-5.4); Red Cell Distribution Width 12.5 % (11.5-14.5)
[2024-06-30 18:20] LABS: Alanine Aminotransferase 15 U/L (6-35); Alkaline Phosphatase 57 U/L (38-126); Anion Gap 6 mmol/L (4-12); Aspartate Amino Transferase 25 U/L (14-36); Bilirubin,Total 0.6 mg/dL (0.2-1.3); Blood Urea Nitrogen 13 mg/dL (7-17); Calcium 9.7 mg/dL (8.4-10.2); Carbon Dioxide 28 mmol/L (22-30); Chloride 103 mmol/L (98-107); Estimated CRCL calculation 56 ml/min; Estimated Glomerular Filt Rate > 60; Glucose 133 mg/dL (65-110); Lipase 53 U/L (23-300); Potassium 3.7 mmol/L (3.4-5.0); Sodium 137 mmol/L (137-145)
[2024-06-30 18:23] LABS: Prothrombin Time 13.2 Seconds (11.1-14.7)
[2024-06-30 18:25] LABS: Partial Thromboplastin Time 25.6 Seconds (22.3-36.8)
[2024-06-30] MEDS: BELLADONNA ALK/PHENOB ELIX 10 ML, MAG HYDROX/ALUMINUM HYD/SIMETH 30 ML, LIDOCAINE 2% VI... PO (18:29)
[2024-06-30] MEDS: FAMOTIDINE 20 MG/2 ML VIAL IV PUSH (18:29)
[2024-06-30 18:32] LABS: Troponin I < 0.012 ng/mL (0.000-0.034)
[2024-06-30 18:41] LABS: Add Urine Microscopic? YES; Appearance Urine Cloudy (Clear); Bacteria Urine Rare /hpf; Bilirubin Urine Negative (Negative); Blood Urine 1+ (Negative); Color Urine Yellow (Yellow); Glucose Urine UA Negative (Negative); Ketones Urine 1+ mg/dL (Negative); Leukocyte Esterase Ur 1+ LEU/UL (Negative); Nitrate Urine Negative (Negative); Non Pathogenic Casts 0-2; Protein Urine Negative (Negative); RBC Urine 0-2 /hpf (0-2); Specific Grav Ur 1.016 (1.001-1.035); Squamous Epithelial Cell Urine Many /hpf (Few); pH Urine 5.5 (5.0-9.0)
== END 2024-06-30 21:53 | disposition home or self-care (01) ==
PROVIDERS: Physician Assistant; Emergency Provider Physician Assistant
DX: R10.11 Right upper quadrant pain (principal); K21.9 Gastro-esophageal reflux disease without esophagitis
CPT/HCPCS: 36415; 74177; 80053; 81001; 83690; 84484; 85025; 85610; 85730; 87086; 93005; 96374; 96375; 99284; A9270; Q9967